=== PATIENT | male | born 1950 | race Caucasian/White ===

== ENCOUNTER → 2024-11-23 | Outpatient (CLI) | payer MEDICARE, BC, SELFPAY ==
[2024-11-23 16:17] LABS: Basophils # (Auto) 0.1 Thou/mm3 (0.0-0.2); Basophils % (Auto) 1 % (0-2.5); Eosinophils # (Auto) 0.5 Thou/mm3 (0.0-0.5); Eosinophils % (Auto) 5 % (0-10); Hematocrit 33.4 % (41.0-53.0); Hemoglobin 10.7 g/dL (13.5-16.0); Immature Granulocytes % (Auto) 0 % (0-0); Immature Granulocytes Auto 0.02 Thou/mm3 (0.00-0.00); Lymphocytes # (Auto) 2.4 Thou/mm3 (1.0-4.8); Lymphocytes % (Auto) 27 % (10-50); Mean Corpuscular Hemoglobin 27.7 pg (25.0-35.0); Mean Corpuscular Volume 87 fL (80-100); Monocytes # (Auto) 0.5 Thou/mm3 (0.0-0.8); Monocytes % (Auto) 6 % (0-12); Neutrophils # (Auto) 5.5 Thou/mm3 (1.8-7.7); Neutrophils % (Auto) 61 % (37-80); Nucleated Red Blood Cell % 0 /100 WBC (0); Platelet Count 188 Thou/mm3 (140-440); RDW Standard Deviation 42.9 fL (35.1-43.9); Red Blood Count 3.86 Miln/mm3 (4.50-5.90); White Blood Count 8.9 Thou/mm3 (3.8-10.6)
[2024-11-23 16:24] LABS: Glucose Estimated Average 180 mg/dL (80-131); Hemoglobin A1C 7.9 % Hgb (4.8-6.0)
[2024-11-23 16:26] LABS: Creatinine MALB Rnd Ur 149 mg/dL (30-125); Microalbumin Creat Ratio 12 mg/gCrea (<30); Microalbumin, Random Urine 18 mg/L (0-300)
[2024-11-23 16:31] LABS: Vitamin D 25 Hydroxy Total 46.2 ng/mL (7.3-40.2)
[2024-11-23 16:40] LABS: Total Iron Binding Capacity 302 mcg/dL (250-425)
[2024-11-23 16:51] LABS: Iron 74 mcg/dL (65-175); Percent Iron Saturation 24 % (20-55); Unsaturated Iron Binding 228 (225-295)
[2024-11-23 16:55] LABS: Alanine Aminotransferase 17 U/L (10-49); Albumin, Serum 4.2 gm/dL (3.4-4.8); Alkaline Phosphatase 131 U/L (46-116); Anion Gap 9 (7-16); Aspartate Amino Transferase 16 U/L (0-34); BUN/Creatinine Ratio 25 Ratio (12-20); Bilirubin,Total 0.3 mg/dL (0.3-1.2); Blood Urea Nitrogen 37 mg/dL (9-23); Calcium 9.1 mg/dL (8.3-10.6); Calcium (Corrected) 9.1 mg/dL (8.5-10.1); Carbon Dioxide 25.4 mMol/L (20.0-31.0); Cardiac Risk Estimate 2.2 RATIO (4.0-6.7); Chloride 104 mMol/L (98-107); Cholesterol 132 mg/dL (132-200); Creatinine (Component) 1.5 mg/dL (0.6-1.3); Globulin 2.1 gm/dL (2.3-3.5); Glucose 252 mg/dL (74-106); HDL Cholesterol 59 mg/dL (40-60); LDL Cholesterol,Calculated 58 mg/dL (0-130); Osmolality,Calculated 293 (275-295); Phosphorous 3.6 mg/dL (2.4-5.1); Potassium 4.7 mMol/L (3.4-5.1); Sodium 138 mMol/L (136-145); Thyroid Stimulating Hormone 2.63 uIU/mL (0.55-4.78); Total Protein 6.3 gm/dL (5.7-8.2); Triglycerides 73 mg/dL (30-150); eGFR 49 See Note
== END | disposition home or self-care (01) ==
LOC: COPL 14:16
PROVIDERS: PCP Family Medicine; Referring Provider Family Medicine; Visit Provider Internal Medicine
DX: I12.9 Hypertensive chronic kidney disease with stage 1 through stage 4 chronic kidney disease, or unspecified chronic kidney disease (principal); E11.22 Type 2 diabetes mellitus with diabetic chronic kidney disease; N18.32 Chronic kidney disease, stage 3b; D63.1 Anemia in chronic kidney disease; N17.9 Acute kidney failure, unspecified; R60.9 Edema, unspecified; N17.0 Acute kidney failure with tubular necrosis; E11.65 Type 2 diabetes mellitus with hyperglycemia
CPT/HCPCS: 36415; 80053; 80061; 82043; 82306; 82570; 83036; 83540; 83550; 84100; 84443; 85025

== ENCOUNTER → 2025-02-06 | Outpatient (CLI) | payer MEDICARE, BC, SELFPAY ==
--- NOTE | 2025-02-06 | XR_ITS ---
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
== END | disposition home or self-care (01) ==
PROVIDERS: PCP Family Medicine; Referring Provider Physical Medicine & Rehabilitation Pain Medicine; Visit Provider Physical Medicine & Rehabilitation Pain Medicine
DX: M16.0 Bilateral primary osteoarthritis of hip (principal); M70.62 Trochanteric bursitis, left hip
CPT/HCPCS: 73502

== ENCOUNTER → 2025-03-17 | Outpatient (CLI) | payer MEDICARE, BC, SELFPAY ==
[2025-03-17 15:59] LABS: Basophils % (Auto) 1 % (0-2.5); Eosinophils # (Auto) 0.4 Thou/mm3 (0.0-0.5); Eosinophils % (Auto) 6 % (0-10); Hematocrit 30.1 % (41.0-53.0); Hemoglobin 10.1 g/dL (13.5-16.0); Immature Granulocytes % (Auto) 0 % (0-0); Immature Granulocytes Auto 0.02 Thou/mm3 (0.00-0.00); Lymphocytes # (Auto) 1.8 Thou/mm3 (1.0-4.8); Lymphocytes % (Auto) 28 % (10-50); Mean Corpuscular HGB Conc 33.6 g/dl (31.0-37.0); Mean Corpuscular Hemoglobin 28.1 pg (25.0-35.0); Mean Corpuscular Volume 84 fL (80-100); Monocytes # (Auto) 0.4 Thou/mm3 (0.0-0.8); Monocytes % (Auto) 6 % (0-12); Neutrophils # (Auto) 3.9 Thou/mm3 (1.8-7.7); Neutrophils % (Auto) 59 % (37-80); Nucleated Red Blood Cell % 0 /100 WBC (0); Platelet Count 158 Thou/mm3 (140-440); RDW Standard Deviation 49.8 fL (35.1-43.9); White Blood Count 6.6 Thou/mm3 (3.8-10.6)
[2025-03-17 16:12] LABS: Anion Gap 10 (7-16); BUN/Creatinine Ratio 24 Ratio (12-20); Blood Urea Nitrogen 33 mg/dL (9-23); Calcium 8.5 mg/dL (8.3-10.6); Calcium (Corrected) 8.5 mg/dL (8.5-10.1); Carbon Dioxide 16.7 mMol/L (20.0-31.0); Chloride 116 mMol/L (98-107); Creatinine (Component) 1.4 mg/dL (0.6-1.3); Glucose 250 mg/dL (74-106); Osmolality,Calculated 300 (275-295); Phosphorous 3.4 mg/dL (2.4-5.1); Potassium 4.3 mMol/L (3.4-5.1); Sodium 143 mMol/L (136-145); eGFR 53 See Note
[2025-03-17 16:16] LABS: Iron 58 mcg/dL (65-175); Percent Iron Saturation 21 % (20-55); Total Iron Binding Capacity 269 mcg/dL (250-425); Unsaturated Iron Binding 211 (225-295)
== END | disposition home or self-care (01) ==
LOC: COPL 14:43
PROVIDERS: PCP Family Medicine; Referring Provider Internal Medicine; Visit Provider Internal Medicine
DX: E11.22 Type 2 diabetes mellitus with diabetic chronic kidney disease (principal); N18.32 Chronic kidney disease, stage 3b; D63.1 Anemia in chronic kidney disease; E11.65 Type 2 diabetes mellitus with hyperglycemia; R60.9 Edema, unspecified; N17.0 Acute kidney failure with tubular necrosis
CPT/HCPCS: 36415; 80069; 83540; 83550; 85025

== ENCOUNTER → 2025-03-30 | Outpatient (CLI) | payer MEDICARE, BC, SELFPAY ==
--- NOTE | 2025-03-30 08:49 | XR_ITS ---
Examination: Esophagram standard Upright PA chest single view Upright soft tissue lateral neck single view Fluoroscopy 22 spot fluoroscopic films of the esophagus Date and time: March 30, 2025 0907 hours INDICATIONS: Heartburn gastric reflux 4 months TECHNIQUE AND FINDINGS: Upright PA chest demonstrates normal heart size, lungs are clear Soft tissue lateral neck demonstrates prominent osteophyte formation anteriorly especially C5 and C6 Normal epiglottis Patient swallowed thin barium with primary secondary and tertiary esophageal contractions as well as esophageal spasm No definite constricting esophageal lesion Moderate intermittent gastroesophageal reflux. There is no stricture at the gastroesophageal junction IMPRESSION: Significant esophageal dysmotility Moderate intermittent gastroesophageal reflux There is no stricture the gastroesophageal junction Fluoroscopy 0.16 minutes 22 spot fluoroscopic films of the esophagus
== END | disposition home or self-care (01) ==
LOC: CDIM 08:38
PROVIDERS: PCP Family Medicine; Referring Provider Family Medicine; Visit Provider Family Medicine
DX: K21.9 Gastro-esophageal reflux disease without esophagitis (principal); K22.89 Other specified disease of esophagus
CPT/HCPCS: 74220; A4699

== ENCOUNTER → 2025-06-30 | Outpatient (CLI) | payer MEDICARE, BC, SELFPAY ==
[2025-06-30 12:29] LABS: Basophils # (Auto) 0.1 Thou/mm3 (0.0-0.2); Basophils % (Auto) 1 % (0-2.5); Eosinophils # (Auto) 0.4 Thou/mm3 (0.0-0.5); Eosinophils % (Auto) 4 % (0-10); Hematocrit 33.9 % (41.0-53.0); Hemoglobin 10.7 g/dL (13.5-16.0); Immature Granulocytes Auto 0.02 Thou/mm3 (0.00-0.00); Lymphocytes # (Auto) 1.6 Thou/mm3 (1.0-4.8); Lymphocytes % (Auto) 20 % (10-50); Mean Corpuscular HGB Conc 31.6 g/dl (31.0-37.0); Mean Corpuscular Hemoglobin 28.9 pg (25.0-35.0); Mean Corpuscular Volume 92 fL (80-100); Monocytes # (Auto) 0.5 Thou/mm3 (0.0-0.8); Monocytes % (Auto) 6 % (0-12); Neutrophils # (Auto) 5.5 Thou/mm3 (1.8-7.7); Neutrophils % (Auto) 68 % (37-80); Nucleated Red Blood Cell # 0.00 Thou/mm3 (0.00-0.00); Nucleated Red Blood Cell % 0 /100 WBC (0); Platelet Count 183 Thou/mm3 (140-440); RDW Standard Deviation 49.2 fL (35.1-43.9); Red Blood Count 3.70 Miln/mm3 (4.50-5.90); White Blood Count 8.1 Thou/mm3 (3.8-10.6)
[2025-06-30 12:54] LABS: Albumin, Serum 4.0 gm/dL (3.4-4.8); Anion Gap 10 (7-16); BUN/Creatinine Ratio 14 Ratio (12-20); Blood Urea Nitrogen 21 mg/dL (9-23); Calcium 9.1 mg/dL (8.3-10.6); Calcium (Corrected) 9.1 mg/dL (8.5-10.1); Carbon Dioxide 19.7 mMol/L (20.0-31.0); Chloride 114 mMol/L (98-107); Creatinine (Component) 1.5 mg/dL (0.6-1.3); Glucose 221 mg/dL (74-106); Osmolality,Calculated 296 (275-295); Phosphorous 2.9 mg/dL (2.4-5.1); Potassium 4.5 mMol/L (3.4-5.1); Sodium 144 mMol/L (136-145); eGFR 49 See Note
[2025-06-30 12:58] LABS: Vitamin D 25 Hydroxy Total 37.6 ng/mL (7.3-40.2)
== END | disposition home or self-care (01) ==
LOC: COPL 12:01
PROVIDERS: PCP Family Medicine; Referring Provider Internal Medicine; Visit Provider Internal Medicine
DX: E11.22 Type 2 diabetes mellitus with diabetic chronic kidney disease (principal); N18.32 Chronic kidney disease, stage 3b; D63.1 Anemia in chronic kidney disease; R60.9 Edema, unspecified; E11.65 Type 2 diabetes mellitus with hyperglycemia; N17.0 Acute kidney failure with tubular necrosis
CPT/HCPCS: 36415; 80069; 82306; 85025

== ENCOUNTER → 2025-10-10 | Outpatient (CLI) | payer MEDICARE, BC, SELFPAY ==
[2025-10-10 10:34] LABS: Basophils # (Auto) 0.1 Thou/mm3 (0.0-0.2); Basophils % (Auto) 1 % (0-2.5); Eosinophils # (Auto) 0.6 Thou/mm3 (0.0-0.5); Eosinophils % (Auto) 6 % (0-10); Hematocrit 32.3 % (41.0-53.0); Hemoglobin 10.3 g/dL (13.5-16.0); Immature Granulocytes Auto 0.03 Thou/mm3 (0.00-0.00); Lymphocytes # (Auto) 2.8 Thou/mm3 (1.0-4.8); Lymphocytes % (Auto) 30 % (10-50); Mean Corpuscular HGB Conc 31.9 g/dl (31.0-37.0); Mean Corpuscular Hemoglobin 29.2 pg (25.0-35.0); Mean Corpuscular Volume 92 fL (80-100); Monocytes # (Auto) 0.5 Thou/mm3 (0.0-0.8); Monocytes % (Auto) 6 % (0-12); Neutrophils # (Auto) 5.2 Thou/mm3 (1.8-7.7); Neutrophils % (Auto) 57 % (37-80); Nucleated Red Blood Cell # 0.00 Thou/mm3 (0.00-0.00); Nucleated Red Blood Cell % 0 /100 WBC (0); Platelet Count 158 Thou/mm3 (140-440); RDW Standard Deviation 51.2 fL (35.1-43.9); Red Blood Count 3.53 Miln/mm3 (4.50-5.90); White Blood Count 9.2 Thou/mm3 (3.8-10.6)
[2025-10-10 10:56] LABS: Albumin, Serum 4.3 gm/dL (3.4-4.8); Anion Gap 10 (7-16); BUN/Creatinine Ratio 18 Ratio (12-20); Blood Urea Nitrogen 30 mg/dL (9-23); Calcium 9.0 mg/dL (8.3-10.6); Calcium (Corrected) 9.0 mg/dL (8.5-10.1); Carbon Dioxide 21.4 mMol/L (20.0-31.0); Chloride 111 mMol/L (98-107); Creatinine (Component) 1.7 mg/dL (0.6-1.3); Glucose 238 mg/dL (74-106); Osmolality,Calculated 297 (275-295); Phosphorous 4.7 mg/dL (2.4-5.1); Potassium 4.4 mMol/L (3.4-5.1); Sodium 142 mMol/L (136-145); eGFR 42 See Note
[2025-10-10 10:57] LABS: Iron 58 mcg/dL (65-175); Percent Iron Saturation 22 % (20-55); Total Iron Binding Capacity 255 mcg/dL (250-425); Unsaturated Iron Binding 197 (225-295)
== END | disposition home or self-care (01) ==
LOC: COPL 09:49
PROVIDERS: PCP Family Medicine; Referring Provider Internal Medicine; Visit Provider Internal Medicine
DX: E11.22 Type 2 diabetes mellitus with diabetic chronic kidney disease (principal); N18.32 Chronic kidney disease, stage 3b; D63.1 Anemia in chronic kidney disease; E11.65 Type 2 diabetes mellitus with hyperglycemia; R60.9 Edema, unspecified; N17.9 Acute kidney failure, unspecified; N17.0 Acute kidney failure with tubular necrosis
CPT/HCPCS: 36415; 80069; 83540; 83550; 85025